=== PATIENT | male | born 1965 | race Caucasian/White ===

== ENCOUNTER 2018-01-11 22:49 | Emergency (ER) | payer OTHER, SELFPAY ==
[2018-01-11 22:50] VITALS: BP 142/69; PULSE 65; RESP 22; TEMP 36.1; O2SAT 99; BMI 22.1
--- NOTE | 2018-01-12 00:28 | ED.DCSUM_ITS ---
- ER Visit Summary Date of Service: 01/12/18 Chief Complaint: Right-sided nosebleed History of Present Illness: The patient is a 52 M no significant past medical history. No prior facial surgery. States tonight about 10-15 week spontaneous nosebleed on the right. When he saw the blood he did have a syncopal episode. He said the bleeding is much better controlled after his placed some nasal spray and a cotton ball on the right side of his nose. There was no bleeding from the left. He denies any bleeding in the back of his throat. He is on no blood thinners. He denies any trauma. He denies any gross melena, hematemesis nor hematuria. He has had nosebleeds before but very infrequently. Physical Examination: Well-appearing middle-age male. Vital signs are stable afebrile. H EENT exam small amount of blood in the right side of his nose. Appears to be an anterior source. No clots currently. Left nares normal. No blood. Posterior pharynx normal no blood. Lungs clear to auscultation. Heart regular rate and rhythm no murmur. Moving all 4 extremities. Neurologically is awake and alert with no Test Results: None Emergency Department Course and Treatment: I placed Afrin-soaked cotton on the right side of his nose. Currently there is no active bleeding. I then placed a anterior nasal pack, nasal tampon, in the right side of his nose. That was lubricated with bacitracin ointment. Currently patient has no bleeding whatsoever. Treatment Plan: Anterior nasal pack for 3 days. Amoxicillin 3 times daily. Return if rebleeds and unable to stop. Disposition: Discharge Impression: Acute right anterior epistaxis Anterior nasal pack placed by ER physician This note was generated with [employer] dictation software. It may contain incorrect words, spelling, and punctuation that were not noted in review of the chart prior to signing ED Disposition - Plan for ED Patient: Chief Complaint: Nosebleed Referrals: Susan Ivan MD [Primary Care Provider] -
--- NOTE | 2018-01-12 00:28 | ED.DEP ---
ED Disposition - Plan for ED Patient: Disposition: Home or Assisted Living Chief Complaint: Nosebleed Instructions: Nosebleed Prescriptions: Amoxicillin 250 mg PO TID #9 cap Referrals: Lucho Bennett MD [STAFF PHYSICIAN] - As Needed Additional Instructions: Pull nasal packing out in 3 days. Amoxicillin 1 pill 3 times a day for the next 3 days. If nose rebleeds direct pressure for 20 minutes. If unable to stop return to the ER.
[2018-01-12 00:38] VITALS: PULSE 88; RESP 16
== END 2018-01-12 00:39 | disposition home or self-care (01) ==
PROVIDERS: Emergency Provider Emergency Medicine; Family Provider Family Medicine; PCP Family Medicine
DX: R04.0 Epistaxis (principal)
CPT/HCPCS: 30901; 99282

== ENCOUNTER → 2019-01-05 12:09 | Outpatient (CLI) | payer OTHER, SELFPAY ==
[2019-01-05 14:13] LABS: Absolute Lymphocyte Count 0.82 X10^3/uL (0.83-4.51); Absolute Neutrophil Count 3.5 X10^3/uL (2.0-7.7); Basophil# 0.01 X10^3/uL; Basophil% 0.2 % (0-1); Eosinophil# 0.02 X10^3/uL; Eosinophils% 0.4 % (0-5); Hematocrit 45.5 % (40-54); Hemoglobin 15.5 g/dL (13.0-16.5); Lymphocyte # 0.82 X10^3/ul (4.0); Lymphocyte % 17.7 % (19-41); Mean Corp Hgb Conc 34.1 g/dL (32-36); Mean Corpuscular Hgb 30.6 pg (27.0-32.0); Mean Corpuscular Volume 89.7 fL (80-94); Mean Platelet Vol. 9.4 fl (6.2-12.0); Monocyte# 0.28 X10^3/uL; NRBC Flagged by Analyzer 0 % (0-5); Neutrophil # 3.49 X10^3/uL (2.7-7.7); Neutrophil % 75.3 % (47-70); Platelet Count 199 K/mm3 (150-450); RBC Distribution Width SD 42.5 fl (35.1-43.9); Red Blood Count 5.07 M/mm3 (4.6-6.2); White Blood Count 4.6 K/mm3 (4.4-11.0)
[2019-01-05 14:46] LABS: ALB/GLOB Ratio 1.4 RATIO (0.9-2.4); AST(SGOT) 28 U/L (15-37); Alanine Aminotransfer ALT/SGPT 66 U/L (16-61); Albumin, Serum 4.2 g/dL (3.2-5.0); Alkaline Phosphatase 71 U/L (45-117); Anion Gap 8 (5-15); BUN 15 mg/dL (7-18); BUN/Creat Ratio 14.6 RATIO (10-20); Calcium,Total 9.1 mg/dL (8.5-10.1); Chloride 103 mmol/L (98-107); Creatinine, Serum 1.03 mg/dL (0.70-1.30); EST Glomerular Filtration Rate 80 mL/min (>60); Est Glom Filt Rate - Afr Amer 96 mL/min (>60); Glucose 86 mg/dL (74-106); Magnesium 2.3 mg/dL (1.6-2.6); Protein, Total 7.2 g/dL (6.4-8.2); Sodium Level 141 mmol/L (136-145); Thyroid Stim Hormone (TSH) 2.44 uIU/mL (0.358-3.74)
== END ==
PROVIDERS: Family Provider Family Medicine; PCP Family Medicine; Referring Provider Family Medicine; Visit Provider Family Medicine
DX: R00.2 Palpitations (principal)
CPT/HCPCS: 36415; 80053; 83735; 84443; 85025

== ENCOUNTER → 2019-01-10 09:51 | Outpatient (CLI) | payer OTHER, SELFPAY ==
--- NOTE | 2019-01-10 09:55 | ECHOD_ITS ---
Reason For Study: MURMUR Procedure This was a 2D Doppler, Color Flow transthoracic echocardiogram. The exam was of adequate technical quality. Exam performed in department. Left Ventricle Normal LV size. Left ventricular systolic function is normal. The estimated ejection fraction is 55 %. No evidence for diastolic dysfunction. No regional wall motion abnormalities noted. Right Ventricle Normal RV size. Normal systolic function. Atria Normal left atrium. Normal right atrium. No doppler evidence for ASD. Mitral Valve There is no mitral annular calcification. Normal mitral valve. Trivial mitral valve insufficiency. Tricuspid Valve Normal tricuspid valve. Trivial tricuspid valve insufficiency. Right ventricular systolic pressure estimated to be 24 mmHg. Aortic Valve Trisinus/trileaflet aortic valve. Mild focal aortic valve calcification. Pulmonic Valve The pulmonic valve is not well visualized. Trivial pulmonic valve insufficiency. Great Vessels Normal sized aortic root. Pericardium/Pleural No pericardial effusion. MMode/2D Measurements & Calculations LVIDd: 4.9 cm IVSd: 0.73 cm Ao root diam: 3.1 cm LVIDs: 3.6 cm LVPWd: 0.81 cm RVDd: 3.3 cm FS: 26.4 % LAV(MOD-bp): 21.9 ml LVAd ap4: 29.3 cm2 SV(MOD-sp4): 46.0 ml LAV(MOD-bp) Indexed: 12.6 ml/m2 EDV(MOD-sp4): 89.5 ml LAV(MOD-sp2): 21.3 ml EDV(sp4-el): 89.9 ml LAV(MOD-sp4): 22.3 ml LVAs ap4: 19.0 cm2 ESV(MOD-sp4): 43.5 ml ESV(sp4-el): 44.9 ml EF(MOD-sp4): 51.4 % EF(sp4-el): 50.0 % SV(sp4-el): 45.0 ml LA A4 area: 11.3 cm2 LA dimension(2D): 2.4 cm RA A4 area: 13.3 cm2 Time Measurements MV dec time: 0.24 sec Doppler Measurements & Calculations MV E max lee: 61.3 cm/sec Lat Peak E' Lee: 12.4 cm/sec Med Peak E' Lee: 13.1 cm/sec MV A max lee: 60.5 cm/sec E/E' lat: 5.0 E/E' med: 4.7 MV E/A: 1.0 Ao V2 max: 138.0 cm/sec LV V1 max: 103.2 cm/sec PA V2 max: 113.0 cm/sec Ao max P.6 mmHg LV V1 max P.3 mmHg TR max lee: 230.9 cm/sec TR max P.3 mmHg Interpretation Summary Left ventricular systolic function is normal. The estimated ejection fraction is 55 %. Trivial mitral valve insufficiency. Trivial tricuspid valve insufficiency. Mild focal aortic valve calcification. Trivial pulmonic valve insufficiency. Right ventricular systolic pressure estimated to be 24 mmHg. No evidence for diastolic dysfunction. Ordering Physician: Sundar Mccullough Referring Physician: Sundar Mccullough Performed By: Aleisha Marlow RDCS
== END ==
PROVIDERS: Family Provider Family Medicine; PCP Family Medicine; Referring Provider Family Medicine; Visit Provider Family Medicine
DX: R01.1 Cardiac murmur, unspecified (principal)
CPT/HCPCS: 93306

== ENCOUNTER → 2019-01-27 09:37 | Outpatient (CLI) | payer OTHER, SELFPAY ==
[2019-01-27 09:16] VITALS: BMI 22.1
--- NOTE | 2019-01-27 09:40 | EKG12_ITS ---
Test Reason : PRE-OP Blood Pressure : / mmHG Vent. Rate : 056 BPM Atrial Rate : 056 BPM P-R Int : 178 ms QRS Dur : 108 ms QT Int : 454 ms P-R-T Axes : 078 073 040 degrees QTc Int : 438 ms Sinus bradycardia Otherwise normal ECG Confirmed by TANJA OHARA, CARYN ([id number]), art editor IVETTE LOONEY ([id number]) on 01/30/2019 1:31:53 PM Referred By: Collin Nicolas Confirmed By:HEIDI AGRAWAL MD
== END ==
PROVIDERS: Family Provider Family Medicine; PCP Family Medicine; Referring Provider Surgery; Visit Provider Surgery
DX: R00.2 Palpitations (principal)
CPT/HCPCS: 93005

== ENCOUNTER → 2019-02-20 09:33 | Outpatient (CLI) | payer OTHER, SELFPAY ==
[2019-02-09 13:27] VITALS: BMI 22.1
[2019-02-09 13:43] VITALS: BMI 22.1
--- NOTE | 2019-02-20 09:34 | RAD_ITS ---
STUDY: AIR CONTRAST UPPER GI SERIES REASON FOR EXAM: Male, 53 years old. Gastroesophageal reflux disease. Worsening. Loss of weight. FLUOROSCOPY TIME (if supplied): (2:19) minutes/seconds TECHNIQUE: SINGLE CONTRAST AND AIR CONTRAST FLUOROSCOPIC IMAGES. COMPARISON: None. FINDINGS: The cervical esophagus demonstrates normal motility without aspiration. There is no stricture or extrinsic mass effect. No intraluminal polypoid mass is identified. The thoracic esophagus distends well without stricture or mucosal fold thickening. No mucosal ulcerations are identified. There is no extrinsic mass effect. There are no diverticula. The patient ingest a 12 mm tablet of barium without any difficulty. No hiatal hernia or gastroesophageal reflux was identified. The stomach distends well without mucosal fold thickening or mucosal ulceration. There is no intraluminal mass. The duodenal bulb is freely distensible without deformity or ulceration. The duodenal sweep is normal in position and caliber. RAD/Upper GI w/BA Swallow IMPRESSION: Normal air-contrast upper GI series. Electronically Signed: James Ruvalcaba, at 12:48 EDT , Service support ,
== END ==
PROVIDERS: Family Provider Family Medicine; PCP Family Medicine; Referring Provider Surgery; Visit Provider Surgery
DX: K21.9 Gastro-esophageal reflux disease without esophagitis (principal); R14.0 Abdominal distension (gaseous)
CPT/HCPCS: 74246

== ENCOUNTER → 2019-03-13 12:57 | Outpatient (CLI) | payer OTHER, SELFPAY ==
[2019-03-09 13:53] VITALS: BMI 19.9
== END ==
PROVIDERS: Family Provider Family Medicine; PCP Family Medicine; Referring Provider Internal Medicine Cardiovascular Disease; Visit Provider Internal Medicine Cardiovascular Disease
DX: R00.2 Palpitations (principal)
CPT/HCPCS: 93225; 93226

== ENCOUNTER → 2019-03-28 06:42 | Outpatient (CLI) | payer OTHER, SELFPAY ==
[2019-03-09 13:53] VITALS: BMI 19.9
--- NOTE | 2019-03-28 13:18 | STRESSREP_ITS ---
Stress Test Report Date: 03-28-19 Procedure: Exercise tolerance test/imaging study Indications: Palpitations; cardiac ectopy; chest discomfort Consent: Per the patient Procedure: The patient exercised on a Jaden protocol for 15 minutes completing Stage V achieving a peak heart rate of 173 bpm (104 % predicted maximal heart rate) with a peak blood pressure 140/60 mmHg and a peak MET capacity of 17 METs. The baseline ECG demonstrated normal sinus rhythm. The peak exercise ECG demonstrated no obvious ECG changes. There was a rare PVC during exercise and recovery. The functional capacity was considered good. There was no complaint of chest discomfort during exercise or recovery. The examination was discontinued secondary to leg discomfort. Impression: 1. Technically adequate (percent predicted maximal heart rate greater than 85%) exercise tolerance test 2. Peak exercise ECG with no obvious ECG changes 3. Rare PVC during exercise and recovery 4. Nuclear images pending Myocardial perfusion imaging study: Technique: The patient was injected with 12.0 mCi of technetium 99m Cardiolite and subsequently rest SPECT Cardiolite nuclear imaging was obtained in the horizontal long, vertical long, and short axis views. The patient exercised on a Jaden protocol for 15 minutes completing Stage V achieving a peak heart rate of 173 bpm (104 % predicted maximal heart rate) with a peak blood pressure 140/60 mmHg and a peak MET capacity of 17 METs. The patient was injected with 36.0 mCi of technetium 99m Cardiolite and subsequently stress SPECT Cardiolite nuclear imaging was obtained in the horizontal long, vertical long, and short axis views. A gated Cardiolite study at peak stress was obtained. Interpretation: Rest and stress SPECT Cardiolite nuclear imaging status post realignment, normalization, and attenuation correction, demonstrates the appearance of relative uniform tracer uptake and myocardial perfusion appearing within normal limits. There is end systolic thickening and brightening. The gated Cardiolite study demonstrates myocardial thickening and inward wall motion. The reported LVEF is 69 %. Impression: 1. Rest and stress SPECT Cardiolite nuclear imaging demonstrate relative uniform tracer uptake and myocardial perfusion appearing within normal limits. 2. The gated Cardiolite study reports an LVEF of 69 %. This note was generated with [employer] software. It may contain incorrect words, spelling, and punctuation that were not noted in checking the note before signing.
== END ==
PROVIDERS: Family Provider Family Medicine; PCP Family Medicine; Referring Provider Internal Medicine Cardiovascular Disease; Visit Provider Internal Medicine Cardiovascular Disease
DX: R00.2 Palpitations (principal); R07.9 Chest pain, unspecified
CPT/HCPCS: 78452; 93017; A9500; A4216

== ENCOUNTER 2019-04-25 08:00 | Day surgery (SDC) | payer OTHER, SELFPAY ==
[2019-03-16 13:47] VITALS: BMI 19.9
[2019-04-24 11:27] VITALS: BMI 19.9
[2019-04-25 08:16] VITALS: BP 124/92; PULSE 80; RESP 16; TEMP 36.7; O2SAT 100
[2019-04-25] MEDS: Lactated Ringers 1,000 ML 100 ML IV (08:24)
--- NOTE | 2019-04-25 08:54 | H&P.OPEN ---
History of Present Illness Date of Admission: 04/25/19 The patient is a 53 year old M who has been having acid reflux. He needs EGD. He is also due for screening colonoscopy. He is never had a screening colonoscopy. He denies any family history of colon cancer. Past Medical/Surgical History - Planned Operation Planned Operative Procedure/s: EGD/Colonoscopy Date of Operative Procedure: 04/25/19 Permit Signed: No S.O.S: No Is This Patient Having a Total Joint: No - Previous Hospitalizations/Surgeries HX Hospitalizations: No HX of Surgeries: dental extraction Any Problems With Anesthesia: No You/Your Family Experience Fever (Hyperthermia) With Anes: No Cholinesterase deficiency: No - Cardiovascular Hx Chest Pain within Last 2 months: No Hx of Irregular Heartbeat and/or Afib: Yes - [facility] 02/2019/ 04/24/19 has appt Hx Heart Attack: No Hx Congestive Heart Failure: No Hx Rheumatic Fever: No Hx Hypertension: No Hx Internal Defibrillator: No Hx Pacemaker: No Hx Cardiac Catheterization: No Hx Cardiac Surgery/Stents/Etc.: No Hx Stress Test: Yes - stress,echo,holter 2018 HX Edema: No Hx Pain in Legs when Walking/Leg Cramps: No - Respiratory Chronic Cough: No HX of Shortness of Breath: No - denies Hoarseness: No Hx Chronic Obstructive Pulmonary Disease (COPD): No Hx Asthma: No Hx Emphysema: No Hx Sleep Apnea: No Hx Oxygen Use at Home: No Hx Respiratory Tract Infection/Cold (presently): No Do You Snore Loudly (louder than talking or can be heard): No Do You Often Feel Tired/ Fatigued/ Sleepy Dring Daytime?: No Has Anyone Observed You Stop Breathing During Sleep?: No Result (for STOP score): Negative Hx Smoking: No Smoking Status: Never smoker - Gastrointestinal Hx Gastroesophageal Reflux: Yes Controlled With Meds: Yes - omeprazole Hx Gastrointestinal Disorders: No Hx Gastrointestinal Bleed: No Hx Ulcer: Yes - as child Hx Hiatal Hernia: No Difficulty Chewing/Swallowing: No Recent Onset of Swallowing Problems: No Special diet followed at home: No Hx Unplanned Weight Loss of 20#: Yes - lost 20 pounds, last few months HX Unplanned Weight Gain of 20#: No - Neurological Hx Seizures: No HX Syncope/Blackout Spells/Unconsciousness: Yes - passed out 2018, not recently Hx CVA/Stroke: No Hx Transient Ischemic Attacks (TIA): No Hx Multiple Sclerosis: No Hx Parkinson's Disease: No Hx Head/Neck Injury: No Hx Headaches: Yes Hx Back Injury/Pain: Yes - hx herniated disc, not recent Recent Onset of Speech Difficulty: No Restless Legs: No Does patient have nerve stimulator: No Patient instructed to have device shut off: No Rep notified?: No - Blood Disorder Hx Leukemia: No Bleeding Tendencies: No - nose bleed x1, not since Hx Deep Vein Thrombosis: No Hx High Cholesterol: No Blood Transmitted Disease: No Hx Hepatitis: No Hx Cirrhosis: No Hx Anemia: No Hx Blood Disorders: No - Genitourinary Hx Renal Disease: No - Musculoskeletal Hx Arthritis: No Hx Rheumatoid Arthritis: No Hx Gout: No Recent Onset of an Orthopedic Problem: No - Endocrine Hx Diabetes: No Thyroid Disease: No Hx Steroid Therapy: No - Psycho/Social Hx Substance Use: No Hx Alcohol Use: Yes - 1-2 drinks/week, not recent Hx Anxiety: No Hx Depression: No Mental Illness: No Hx Dementia: No - Miscellaneous Hx Cancer: No Recent Exposure to Contagious Disease: No Active MRSA: No Hx of C-Diff: No Any Loose Teeth: No Allergies No Known Allergies Allergy (Verified 04/24/19 11:27) - Discharge Is Pt Admitted From a [facility], or a Care Home: No Who Could Help: After D/C, Where Do you Plan to Go: Return Home - Physical Exam Vitals/I&O's: Vital Signs Temp Pulse Resp BP Pulse Ox 98.1 F 80 16 124/92 H 100 04/25/19 08:16 04/25/19 08:16 04/25/19 08:16 04/25/19 08:16 04/25/19 08:16 Oxygen Delivery Method Room Air Weight: 131 lb 13.383 oz Body Mass Index (BMI) 20.0 General: Alert, Oriented x3, Cooperative Neck: No JVD Lungs: Normal air movement, No rhonchi Cardiovascular: Regular rate, Regular Rhythm Abdomen: Soft, Non Tender, Non-Distended Current Medications Lactated Ringer's () 1,000 mls @ 100 mls/hr IV .Q10H MAURY Last Admin: 04/25/19 08:24 Dose: 100 mls/hr Documented by: Assessment/Plan All Active Problems (Last Reviewed 04/24/19 @ 11:28 by Beatrice Joya) Chest pain (Acute) Encounter for screening colonoscopy (Acute) Palpitations (Acute) Heart murmur (Acute) 53-year-old male with acid reflux and need for screening colonoscopy Plan for EGD and colonoscopy. I explained endoscopy in detail to the patient. I explained the risks including but not limited to stroke or heart attack with anesthesia, perforation of the GI tract, bleeding, infection. I explained that any of these could necessitate further emergency surgery. The patient understands and all questions were answered sufficiently. The patient wishes to proceed with procedure. Collin Nicolas MD Pager: [facility] [address] [place] [address] [address] [place] [address] Office: Surgery Risks - Colonoscopy Risks Include but are not Limited To: Risks include but are not limited to: Bleeding, perforation requiring further surgery, inability to complete colonoscopy requiring barium enema.
--- NOTE | 2019-04-25 09:00 | EGD_PTH ---
PATIENT: CARMINA LIZ LOC: EN U#:[id number] AGE/SX: 53/M ROOM: RE04/25/[address]: Dr. Collin Nicolas MD : 1965 BED: DIS: 04/25/2019 SPEC #: [id number] RECD: 04/25/19 13:46 STATUS: BOBBY COLTON #: [id number] EVY: 04/25/19 09:[address]: Collin Nicolas DEPT: SURGICAL PATHOLOGY RECD BY: Ronald Maria ENTERED: 04/25/19 14:14 SP TYPE: EGD BIOPSY OT DR: Dr. Susan Ivan MD Tissues: Gastric mucous membrane Procedures: Special Stain Group II Surgery Specimen Level IV Alcian Blue/PAS (control) HEADER OPERATION: Colonoscopy, EGD ([facility] [place] PRE-OP DIAGNOSIS: GERD, screening TISSUE SUBMITTED: GE junction biopsy MICROSCOPIC DIAGNOSIS Gastroesophageal junction, biopsy: Mild chronic inflammation. No evidence of intestinal metaplasia. See comment. AM:osei 04/26/19 COMMENT Alcian blue/PAS stain with matched control supports the above diagnosis. MICROSCOPIC DESCRIPTION Slides are reviewed. GROSS DESCRIPTION Received in fixative is one container labeled with the patient's name and designated GE junction biopsy. The specimen consists of one irregular fragment of light tyler soft tissue that measures 0.3 x 0.2 x 0.1 cm. The specimen is totally submitted in one cassette. / SJ:osei 04/25/19 TC:3 CPT: 62538, 87106
--- NOTE | 2019-04-25 09:39 | OP.EGD_ITS ---
Patient Name: Davis Tracy Procedure Date: 04/25/2019 9:02 AM Date of : 1965 Age: 53 Procedure: Upper GI endoscopy Indications: Heartburn Providers: Collin Nicolas MD Referring MD: Susan Ivan Medicines: Monitored Anesthesia Care Patient Profile: This is a 53 year old male. Refer to note in patient chart for documentation of history and physical. Complications: No immediate complications. Estimated blood loss: Minimal. Procedure: Pre-Anesthesia Assessment: - Prior to the procedure, a History and Physical was performed, and patient medications and allergies were reviewed. The patient's tolerance of previous anesthesia was also reviewed. The risks and benefits of the procedure and the sedation options and risks were discussed with the patient. All questions were answered, and informed consent was obtained. Prior Anticoagulants: The patient has taken no previous anticoagulant or antiplatelet agents. After reviewing the risks and benefits, the patient was deemed in satisfactory condition to undergo the procedure. After obtaining informed consent, the endoscope was passed under direct vision. Throughout the procedure, the patient's blood pressure, pulse, and oxygen saturations were monitored continuously. The gastroscope was introduced through the mouth, and advanced to the second part of duodenum. The upper GI endoscopy was accomplished without difficulty. The patient tolerated the procedure well. Scope In: 9:09:34 AM Scope Out: 9:14:53 AM Total Procedure Duration Time 0 hours 5 minutes 19 seconds Findings: There were esophageal mucosal changes suspicious for Ramos's esophagus present at the gastroesophageal junction. Mucosa was biopsied with a cold forceps for histology at the gastroesophageal junction. One specimen bottle was sent to pathology. The stomach was normal. The examined duodenum was normal. Impression: - Esophageal mucosal changes suspicious for Ramos's esophagus. Biopsied. - Normal stomach. - Normal examined duodenum. Recommendation: - Await pathology results. - Discharge patient to home. - Resume previous diet. - Continue present medications. Procedure Code(s): --- Professional --- 12746, Esophagogastroduodenoscopy, flexible, transoral; with biopsy, single or multiple Diagnosis Code(s): --- Professional --- K22.8, Other specified diseases of esophagus R12, Heartburn CPT copyright 2017 [employer]. All rights reserved. The codes documented in this report are preliminary and upon faculty dean review may be revised to meet current compliance requirements. Collin Nicolas MD 04/25/2019 9:38:39 AM This report has been signed electronically. Number of Addenda: 0 Note Initiated On: 04/25/2019 9:02 AM
--- NOTE | 2019-04-25 09:40 | OP.COLON_ITS ---
Patient Name: Davis Tracy Procedure Date: 04/25/2019 9:16 AM Date of : 1965 Age: 53 Procedure: Colonoscopy Indications: Screening for colorectal malignant neoplasm Providers: Collin Nicolas MD Referring MD: Susan Ivan Medicines: Monitored Anesthesia Care Patient Profile: This is a 53 year old male. Refer to note in patient chart for documentation of history and physical. Last Colonoscopy: none. The patient's first colonoscopy is today. Complications: No immediate complications. Procedure: Pre-Anesthesia Assessment: - Prior to the procedure, a History and Physical was performed, and patient medications and allergies were reviewed. The patient's tolerance of previous anesthesia was also reviewed. The risks and benefits of the procedure and the sedation options and risks were discussed with the patient. All questions were answered, and informed consent was obtained. Prior Anticoagulants: The patient has taken no previous anticoagulant or antiplatelet agents. After reviewing the risks and benefits, the patient was deemed in satisfactory condition to undergo the procedure. After I obtained informed consent, the scope was passed under direct vision. Throughout the procedure, the patient's blood pressure, pulse, and oxygen saturations were monitored continuously. The pediatric colonoscope was introduced through the anus and advanced to the cecum, identified by appendiceal orifice and ileocecal valve. The colonoscopy was performed without difficulty. The patient tolerated the procedure well. The quality of the bowel preparation was adequate to identify polyps 6 mm and larger in size. Scope In: 9:18:01 AM Scope Withdrawal Time 0 hours 6 minutes 9 seconds Scope Out: 9:33:42 AM Total Procedure Duration Time 0 hours 15 minutes 41 seconds Findings: The entire examined colon appeared normal on direct and retroflexion views. Impression: - The entire examined colon is normal on direct and retroflexion views. - No specimens collected. Recommendation: - Resume previous diet. - Continue present medications. - Repeat colonoscopy in 10 years for screening purposes. - Discharge patient to home. Procedure Code(s): --- Professional --- 30718, Colonoscopy, flexible; diagnostic, including collection of specimen(s) by brushing or washing, when performed (separate procedure) Diagnosis Code(s): --- Professional --- Z12.11, Encounter for screening for malignant neoplasm of colon CPT copyright 2017 [employer]. All rights reserved. The codes documented in this report are preliminary and upon chemical production engineer review may be revised to meet current compliance requirements. Collin Nicolas MD 04/25/2019 9:39:51 AM This report has been signed electronically. Number of Addenda: 0 Note Initiated On: 04/25/2019 9:16 AM
[2019-04-25 09:41] VITALS: BP 124/92; BP 88/61; PULSE 68; RESP 16; TEMP 36.2; O2SAT 100
[2019-04-25 09:45] VITALS: BP 124/92; BP 90/64; PULSE 61; RESP 16; O2SAT 100
[2019-04-25 09:49] VITALS: BP 102/69; BP 124/92; PULSE 88; RESP 16; O2SAT 100
[2019-04-25 09:57] VITALS: BP 102/70; BP 124/92; PULSE 60; RESP 16; TEMP 36.2; O2SAT 100
[2019-04-25 10:23] VITALS: BP 124/92
== END 2019-04-25 10:37 | disposition home or self-care (01) ==
LOC: EN 08:01 → AC 08:02
PROVIDERS: Family Provider Family Medicine; PCP Family Medicine; Referring Provider Family Medicine; Visit Provider Surgery
PROC: 0DJD8ZZ Inspection of Lower Intestinal Tract, Via Natural or Artificial Opening Endoscopic (ICD-10-PCS; CPT 45378; principal; 2019-04-25 08:55)
DX: K21.9 Gastro-esophageal reflux disease without esophagitis (principal); Z12.11 Encounter for screening for malignant neoplasm of colon; K22.8 Other specified diseases of esophagus; R12 Heartburn
CPT/HCPCS: 43239; 45378; 88305; 88313; J7120; J2405